=== PATIENT | female | born 1985 | race Two or more races ===

== ENCOUNTER 2021-11-23 16:30 | Inpatient (IN) | payer BC, OTHER ==
[~2021-11-23] VITALS: Ht 172.7 cm; Wt 87.1 kg
[2021-11-23] MEDS ORDERED: LORAZEPAM INJ 2 MG/ML VIAL ONE (16:37)
[2021-11-23] MEDS ORDERED: MULT-447 PO (16:46)
[2021-11-23] MEDS ORDERED: ASPI-1420 PO (16:46)
[2021-11-23] MEDS ORDERED: MIDAZOLAM 50 MG/10 ML VIAL ONE (16:47)
--- NOTE | 2021-11-23 16:55 | NUR ---
BLOOD DRAWN AND SENT TO LAB
--- NOTE | 2021-11-23 16:56 | NUR ---
HOLD VERSED DOSE PER MD AND GIVE KEPPRA FOR NOW IV.
[2021-11-23] MEDS ORDERED: LEVETIRACETAM (500MG) 1,000 MG in IV NS 0.9% 100 ML IV ONE (17:00)
[2021-11-23] MEDS ORDERED: MIDAZOLAM HCL 2 MG/2ML VIAL IV ONE (17:00)
--- NOTE | 2021-11-23 17:11 | NUR ---
COVID SWAB COLLECTED AND SENT TO LAB.
--- NOTE | 2021-11-23 17:14 | NUR ---
PT TO RADIOLOGY FOR HEAD CT SCAN
--- NOTE | 2021-11-23 17:14 | NUR ---
Christiano virgen in [facility] - 11/23/21 at 1715 by ROSY PT TAKEN TO RADIOLOGY FOR CT
--- NOTE | 2021-11-23 17:23 | NUR ---
PT RETURNED FROM RADIOLOGY
[2021-11-23 17:33] LABS: BASOPHILS % (AUTO) 0.2 % (0.0-2.0); HEMATOCRIT 38 % (33-45); HEMOGLOBIN 12.8 g/dL (11.5-14.8); LYMPHOCYTES # (AUTO) 2.2 K/uL (0.8-4.8); LYMPHOCYTES % (AUTO) 37.7 % (20.0-44.0); MEAN CORPUSCULAR HGB CONC 34 g/dl (31.0-36.0); MEAN CORPUSCULAR VOLUME 91 fL (82-100); MONOCYTES # (AUTO) 0.5 K/uL (0.1-1.30); MONOCYTES % (AUTO) 7.8 % (2.0-12.0); NEUTROPHILS # (AUTO) 3.1 K/uL (1.8-8.9); NEUTROPHILS % (AUTO) 53.3 % (43.0-81.0); PLATELET COUNT (AUTO) 301 K/uL (150-450); RED BLOOD CELL COUNT(AUTO) 4.18 MIL/uL (4.0-5.2); WHITE BLOOD COUNT (AUTO) 5.8 K/uL (4.3-11.0)
[2021-11-23 17:42] LABS: CALCIUM, SERUM 9.2 mg/dL (8.5-10.1); CREATININE 0.6 mg/dL (0.6-1.3); POTASSIUM 3.8 mmol/L (3.5-5.1)
[2021-11-23 17:56] LABS: ALBUMIN 3.9 g/dL (3.4-5.0); BILIRUBIN,DIRECT 0.1 mg/dL (0.0-0.2); BILIRUBIN,TOTAL 0.3 mg/dL (0.2-1.0); TOTAL PROTEIN, SERUM 7.5 g/dL (6.4-8.2)
[2021-11-23] MEDS ORDERED: IV NS 0.9% 250 ML IV ONE (18:32)
[2021-11-23] MEDS ORDERED: IOHEXOL-350 100 ML VIAL IV ONE (18:32)
[2021-11-23] MEDS ORDERED: CT SWABBABLE VALVE TRANS SET 1 EA INFUS.SET MC ONE (18:33)
--- NOTE | 2021-11-23 18:38 | NUR ---
URINE SPECIMEN COLLECTED AND SENT TO LAB.
[2021-11-23] MEDS ORDERED: diphenhydrAMINE HCL 50 MG/ML VIAL IV ONE (19:00)
[2021-11-23] MEDS ORDERED: diphenhydrAMINE HCL 50 MG/ML VIAL ONE (19:04)
--- NOTE | 2021-11-23 19:19 | NUR ---
pt being trandsported to ct via [facility]
[2021-11-23 20:00] LABS: BILIRUBIN,URINE NEGATIVE (NEGATIVE); COLOR,URINE YELLOW (YELLOW); LEUKOCYTE ESTERASE ,URINE NEGATIVE (NEGATIVE); NITRITE, URINE NEGATIVE (NEGATIVE); PH,URINE 5.5 (5.0-8.0); PROTEIN,URINE NEGATIVE (NEGATIVE); UGLUCOSE NEGATIVE (NEGATIVE); UROBILINOGEN,URINE 0.2 EU/dL (0.2)
--- NOTE | 2021-11-23 22:20 | NUR ---
REPORT GIVEN TO 3W KEISHA RODRIGUEZ
--- NOTE | 2021-11-23 22:40 | NUR ---
PT TRANSFERRING TO 3W VIA ACLS PROTOCOL. VITRAL SIGNS STABLE. ALL BELONGINGS WITH PT
--- NOTE | 2021-11-23 22:45 | NUR ---
ASTRONOMY TEACHERGRAIN ELEVATOR MAN NOTE PT TRANSPORTED VIA GURNEY TO UNIT AT THIS TIME. PT FROM HOME ADMITTED TO TELE FROM ER UNDER KISS MIXER [place]E FOR ADMITTING DX OF SEIZURE. A/O X3 AND ABLE TO MAKE NEEDS KNOWN. PT STABLE ON ROOM AIR. NO SOB OR S/S OF RESPIRATORY DISTRESS. BREATHING EVEN AND UNLABORED. ON EXTERNAL PRODUCE INSPECTOR READING SR 72 BPM. SKIN IS INTACT. IV ACCESS RAC 18 GAUGE, INTACT AND PATENT. ORIENTED PT TO STAFF, ROOM, AND UNIT. PT BELONGINGS ACCOUNTED FOR AND BELONGINGS LIST SIGNED. SAFETY PRECAUTIONS IN PLACE. BED IN LOWEST LOCKED POSITION, HOB ELEVATED, SIDE RAILS UP X3 AND PADDED FOR SEIZURE PRECAUTIONS, AND CALL LIGHT AND TABLE WITHIN REACH. ALL NEEDS MET AT THIS TIME.
[2021-11-23 22:56] VITALS: BP 106/64
[2021-11-23] MEDS: IV 1/2NS 1000 ML 1,000 ML IV PRN (23:58)
[2021-11-24] MEDS ORDERED: ZOLPIDEM TARTRATE 5 MG TABLET PO PRN
[2021-11-24] MEDS ORDERED: MAGNESIUM HYDROXIDE 30 ML UDC PO PRN
[2021-11-24] MEDS ORDERED: ACETAMINOPHEN 325 MG TABLET PO PRN
[2021-11-24] MEDS ORDERED: MAG HYDROX/AL HYDROX/SIMETH 30 ML UDC PO PRN
[2021-11-24] MEDS ORDERED: ONDANSETRON HCL/PF 4 MG/2 ML VIAL IVP PRN
[2021-11-24] MEDS ORDERED: Z GUARD REMEDY 4 OZ OINT TP PRN
[2021-11-24] MEDS ORDERED: IV LR 500 ML IV ONE ×2 (00:30)
--- NOTE | 2021-11-24 00:43 | NUR ---
RN NOTE PT NOTED WITH BP 82/45. INFORMED COMPLEX CARE NURSE CHILDRESS WITH ORDER FOR LR 500 ML BOLUS. ORDERS NOTED AND CARRIED OUT.
[2021-11-24] MEDS ORDERED: LORAZEPAM INJ 2 MG/ML VIAL IV PRN (01:00)
[2021-11-24] MEDS: MORPHINE SULFATE INJ 2 MG/ML DISP.SYRIN IV PRN ×5 (02:30→20:56)
--- NOTE | 2021-11-24 02:30 | NUR ---
RN NOTE PT COMPLAINED OF GENERALIZED BODY PAIN 12/09. PT BP AFTER BOLUS WAS 107/65. ADMINISTERED MORPHINE 2 MG FOR SEVERE PAIN ORDERED. MADE COMFORTABLE IN BED. ALL NEEDS MET AT THIS TIME.
[2021-11-24 04:31] VITALS: BP 94/60
--- NOTE | 2021-11-24 06:31 | NUR ---
SERVICE AND REPAIR SUPERVISOR CLOSING NOTE PT AWAKE IN BED. A/O X3 AND ABLE TO MAKE NEEDS KNOWN. PT STABLE ON ROOM AIR. NO SOB OR S/S OF RESPIRATORY DISTRESS. BREATHING EVEN AND UNLABORED. ON EXTERNAL UNLEAVENED DOUGH MIXER READING SR 75 BPM. IV ACCESS RAC 18 GAUGE, INTACT AND PATENT, RUNNING 1/2 NS @ 75 ML/HR. ALL DUE MEDS GIVEN ORDERED. SAFETY PRECAUTIONS IN PLACE AT ALL TIMES. BED IN LOWEST LOCKED POSITION, HOB ELEVATED, SIDE RAILS UP X3 AND PADDED FOR SEIZURE PRECAUTIONS, AND CALL LIGHT AND TABLE WITHIN REACH. ALL NEEDS MET AT THIS TIME AND WILL ENDORSE TO ONCOMING NURSE FOR CARMEN.
[2021-11-24 06:42] LABS: BASOPHILS % (AUTO) 0.4 % (0.0-2.0); EOSINOPHILS % (AUTO) 1.4 % (0.0-6.0); HEMATOCRIT 35 % (33-45); HEMOGLOBIN 12.1 g/dL (11.5-14.8); LYMPHOCYTES % (AUTO) 32.2 % (20.0-44.0); MEAN CORPUSCULAR HGB CONC 35 g/dl (31.0-36.0); MEAN CORPUSCULAR VOLUME 90 fL (82-100); MONOCYTES # (AUTO) 0.5 K/uL (0.1-1.30); MONOCYTES % (AUTO) 8.8 % (2.0-12.0); NEUTROPHILS # (AUTO) 3.5 K/uL (1.8-8.9); NEUTROPHILS % (AUTO) 57.2 % (43.0-81.0); PLATELET COUNT (AUTO) 273 K/uL (150-450); WHITE BLOOD COUNT (AUTO) 6.2 K/uL (4.3-11.0)
[2021-11-24 07:07] LABS: CALCIUM, SERUM 8.9 mg/dL (8.5-10.1); CREATININE 0.6 mg/dL (0.6-1.3); MAGNESIUM 2.1 mg/dL (1.8-2.4); POTASSIUM 3.9 mmol/L (3.5-5.1)
[2021-11-24 07:11] LABS: THYROID STIMULATING HORMONE 3.852 uIU/mL (0.358-3.74)
[2021-11-24] MEDS: PANTOPRAZOLE 40 MG TABLET.DR PO SCH (07:29)
--- NOTE | 2021-11-24 07:30 | NUR ---
DIGITAL CONTENT MARKETING MANAGER OPENING NOTES: RECEIVED PATIENT ASLEEP, EASY TO AROUSED WITH STIMULI. A/O X 4 AND ABLE TO VERBALIZED NEEDS. NO SOB OR CARDIAC DISTRESS NOTED. ON ROOM AIR AND TOLERATED WELL. ON THREAD PULLER W/ CURRENT READING OF SINUS RHYTHM @60 BPM. IV ACCESS ON RAC G18, PATENT AND INTACT AND TOLERATING WELL. KEPT RESTED AND COMFORTABLE. SAFETY PRECAUTIONS MAINTAINED: BED LOCKED AND IN LOWEST POSITION, PADDED SIDE RAILS UP. CALL LIGHT IN EASY REACH FOR HELP. WILL MONITOR FOR ANY SIGNIFICANT CHANGES AND WILL REPORT TO
[2021-11-24 08:00] VITALS: BP 104/66
[2021-11-24] MEDS: ASPIRIN EC 81 MG TABLET.DR PO SCH (08:49)
[2021-11-24] MEDS: LEVETIRACETAM (250 MG) 250 MG TABLET PO SCH ×2 (08:50→20:56)
[2021-11-24] MEDS: MULTIVIT W/MINERALS 1 TAB TABLET PO SCH (08:50)
[2021-11-24 12:00] VITALS: BP 135/75
--- NOTE | 2021-11-24 13:00 | NUR ---
RN NOTES: OBTAINED CHECKLIST FOR MRI OF BRAIN W/O CONTRAST.
--- NOTE | 2021-11-24 13:39 | NUR ---
RN NOTES: PICKED UP BY LATISHA CHAVEZ GOING TO MRI. PATIENT LEFT STABLE.
[2021-11-24 16:00] VITALS: BP 115/69
--- NOTE | 2021-11-24 18:43 | NUR ---
DYE REEL OPERATOR CLOSING NOTES: PATIENT IN BED AWAKE. A/O X 4 AND ABLE TO VERBALIZED NEEDS. NO SOB OR CARDIAC DISTRESS NOTED. ON ROOM AIR AND TOLERATED WELL. ON SONOGRAPHY TECHNOLOGIST W/ CURRENT READING OF SINUS RHYTHM @71 BPM. IV ACCESS ON RAC G18, PATENT AND INTACT AND TOLERATING WELL. KEPT RESTED AND COMFORTABLE. SAFETY PRECAUTIONS MAINTAINED: BED LOCKED AND IN LOWEST POSITION, PADDED SIDE RAILS UP. CALL LIGHT IN EASY REACH FOR HELP. ENDORSED TO CONCRETE PIPE MAKING MACHINE OPERATOR NURSE FOR CARMEN.
--- NOTE | 2021-11-24 19:41 | NUR ---
CLOTH TESTER QUALITY OPENING NOTES RECEIVED PATIENT IN AAOX4.ON ROOM AIR TOLERATED WELL.NO SIGN SOB/DISTRESS NOTED.BREATHING EVEN AND UNLABORED. IV ACCESS ON RAC G18, PATENT AND INTACT.SAFETY PRECAUTIONS MAINTAINED: BED LOCKED AND IN LOWEST POSITION, PADDED SIDE RAILS UP. CALL LIGHT IN EASY REACH FOR HELP. WILL CONTINUE TO MONITOR.
[2021-11-24 20:00] VITALS: BP 104/58
[2021-11-25] VITALS: BP 93/55
[2021-11-25] MEDS: MORPHINE SULFATE INJ 2 MG/ML DISP.SYRIN IV PRN (01:13)
[2021-11-25] MEDS: IV 1/2NS 1000 ML 1,000 ML IV PRN (03:56)
--- NOTE | 2021-11-25 04:40 | NUR ---
RN NOTES PT ALWAYS ASKING MORPHINE Q4HRS DURING SHIFT.COMPLAINED OF GEN.BODY PAIN.NO SIGN A/R NOTED.
--- NOTE | 2021-11-25 06:33 | NUR ---
TUBE MAKING MACHINE OPERATOR CLOSING NOTES: PATIENT IN BED AA/O X 4 AND ABLE TO VERBALIZED NEEDS.ON RM AIR KANDICE WELL.NO SIGN SOB/DISTRESS NOTED.ON ROUTE RETURNER W/ CURRENT READING SR 70 BPM. IV ACCESS ON L WRIST 20G, PATENT AND INTACT.DUE MEDS GIVEN ORDERED,ALL NEEDS ATTENDED.SAFETY PRECAUTIONS MAINTAINED: BED LOCKED AND IN LOWEST POSITION, PADDED SIDE RAILS UP. CALL LIGHT IN EASY REACH FOR HELP. ENDORSED TO NEXT NURSE.
--- NOTE | 2021-11-25 07:05 | NUR ---
VIDEO POKER FLOORMAN OPENING NOTE: RECEIVED PATIENT IN BED, AWAKE, A/O X 4. ABLE TO MAKE NEEDS KNOWN. NO COMPLAINTS OF PAIN AT THIS TIME. ON ROOM AIR, BREATHING EVEN AND UNLABORED.ON TELE MONITOR W/ CURRENT READING OF NSR WITH HR OF 65 BPM. IV ACCESS ON L WRIST #20G, PATENT AND RUNNING WELL WITH 1/2 NS @ 75 ML/HR. PT. ABLE TO AMBULATE TO THE RESTROOM INDEPENDENTLY. SKIN INTACT. SAFETY, FALL AND SEIZURE PRECAUTIONS IN PLACE: BED LOCKED AND IN LOWEST POSITION, PADDED SIDE RAILS UP X2, BED ALARM ON, CALL LIGHT AND BELONGINGS WITHIN EASY REACH. WILL CONTINUE TO MONITOR PT. FOR ANY CHANGES.
[2021-11-25 08:00] VITALS: BP 101/59
[2021-11-25] MEDS: MULTIVIT W/MINERALS 1 TAB TABLET PO SCH (09:36)
[2021-11-25] MEDS: ASPIRIN EC 81 MG TABLET.DR PO SCH (09:36)
[2021-11-25] MEDS: PANTOPRAZOLE 40 MG TABLET.DR PO SCH (09:36)
[2021-11-25] MEDS: LEVETIRACETAM (250 MG) 250 MG TABLET PO SCH (09:36)
[2021-11-25] MEDS ORDERED: LEVE500T9 PO (15:02)
--- NOTE | 2021-11-25 15:41 | NUR ---
MS NEONATAL PEDIATRIC NURSE NOTE: PT. DC'ED TO HOME WITH MD ORDER OF KEPPRA 500 MG PO BID FOR 30 DAYS. VS STABLE UPON DC. A0X4. ON RA, NO S/S OF RESPIRATORY DISTRESS. NO COMPLAINTS OF PAIN OR DISCOMFORT. ABLE TO AMBULATE INDEPENDENTLY WITH STABLE GAIT. IV REMOVED, PRESSURE APPLIED WITH NO S/S OF BLEEDING. WRITTEN DC INSTRUCTIONS AND PT. BELONGING LIST GIVEN AND SIGNED BY PT.. EDUCATION MATERIALS PROVIDED, NEW AND CONTINUED MEDICATIONS EXPLAINED. PT. VERBALIZED UNDERSTANDING. PT. LEFT THE UNIT WITH SISTER COLLINS AT 1540.
== END 2021-11-25 15:50 | disposition home or self-care (01) | DRG 100 ==
LOC: ER 16:32 → TELE 21:58 → MED 11-25 11:36
PROVIDERS: ADMIT Nurse Practitioner Family
DX: G40.409 Other generalized epilepsy and epileptic syndromes, not intractable, without status epilepticus (principal); I77.74 Dissection of vertebral artery; I69.354 Hemiplegia and hemiparesis following cerebral infarction affecting left non-dominant side; Z88.8 Allergy status to other drugs, medicaments and biological substances; Z91.041 Radiographic dye allergy status; Z79.82 Long term (current) use of aspirin; Z98.62 Peripheral vascular angioplasty status
CPT/HCPCS: 36415; 70450-TC; 70496-TC; 70498-TC; 70551-TC; 71045-TC; 80048-TC; 80076-TC; 83735-TC; 84443-TC; 84703-TC; 85025-TC; 87081-TC; 97116-TC; 97530-TC; C9803; G0378; J1200; J1953; J2060; J2250; J2270; J3490; J7030; J7042; J7050; J7120; Q9967